=== PATIENT | female | born 1955 | race Caucasian/White ===

== ENCOUNTER → 2016-10-17 | Outpatient (CLI) | payer MEDICARE ==
[~2016-10-17] MED LIST: ASPIRIN325 MG PO; CALCIUM 600 +1 EA14 PO; CELEXA20 MG PO; CPAP INH; ESTRACE2 MG PO; K-TAB ER20 MEQ PO; LASIX80 MG PO; MAXZIDE-25MG 371 TAB PO; MEGA BIOTIN10000 MCG PO; MULTI VITAMIN1 EACH PO; PROBIOTIC1 EAC1 PO; PROBIOTIC1 EAC4 PO; PROTONIX40 MG PO; RYTHMOL150 MG PO; SOTALOL80 MG PO; TYLENOL EXTRA500 MG PO; TYLENOL PM EX-1 EACH PO; VITAMIN B-121000 MCG PO; ZANTAC150 MG PO
== END | disposition disaster alternative care site (69) ==
LOC: GRAD 09:31
DX: M25.571 Pain in right ankle and joints of right foot (principal); M65.871 Other synovitis and tenosynovitis, right ankle and foot; R60.0 Localized edema

== ENCOUNTER → 2016-12-31 | Outpatient (CLI) | payer MEDICARE | END | disposition disaster alternative care site (69) | LOC: GRAD 10:43 | DX: R91.8 Other nonspecific abnormal finding of lung field (principal) ==